=== PATIENT | female | born 1985 | race Caucasian/White ===

== ENCOUNTER 2019-06-20 08:07 | Inpatient (IN) | payer BC ==
[2019-06-20] MEDS ORDERED: METHYLERGONOVINE 0.2 MG INJ IM ×2 (11:00→22:30)
[2019-06-20] MEDS ORDERED: OXYTOCIN 30 UNITS/LR 500 ML IV ×4 (11:00→22:30)
[2019-06-20] MEDS ORDERED: MISOPROSTOL 200 MCG TAB PR ×2 (11:00→22:30)
[2019-06-20] MEDS ORDERED: CARBOPROST 250 MCG INJ IM ×2 (11:00→22:30)
[2019-06-20] MEDS ORDERED: NACL 0.9% 3 ML SYG IV (11:00)
[2019-06-20] MEDS ORDERED: LIDOCAINE 1% (MPF) 30 ML INJ INJ (11:00)
[2019-06-20] MEDS ORDERED: BUTORPHANOL 2 MG INJ IV ×2 (11:00)
[2019-06-20] MEDS ORDERED: IBUPROFEN 600 MG TAB PO (11:00)
[2019-06-20] MEDS: LACTATED RINGER'S 1,000 ML IV ×4 (11:17→20:32)
[2019-06-20 11:56] LABS: ADD MAN DIFF? NO
[2019-06-20 12:08] LABS: ADD UMIC YES; UR ASCORBIC ACID NEGATIVE (NEGATIVE); UR BACTERIA FEW /HPF (NONE SEEN); UR BILIRUBIN (Dip) NEGATIVE (NEGATIVE); UR BLOOD (Dip) 3+ mg/dL (NEGATIVE); UR CLARITY SLIGHTLY CLOUDY (CLEAR); UR COLOR YELLOW (YELLOW); UR GLUCOSE (Dip) NEGATIVE (NEGATIVE); UR KETONES (Dip) NEGATIVE (NEGATIVE); UR LEUKOCYTE ESTERASE (Dip) TRACE Leu/ul (NEGATIVE); UR NITRITE (Dip) NEGATIVE (NEGATIVE); UR RBC > 182 /HPF (0-5); UR SPECIFIC GRAVITY (Dip) 1.011 (1.003-1.030); UR SQUAMOUS EPITHELIAL CELL FEW /HPF (FEW); UR TOTAL PROTEIN (Dip) 1+ mg/dl (NEGATIVE); UR UROBILINOGEN (Dip) NEGATIVE (NEGATIVE); UR WBC 26 /HPF (0-5)
[2019-06-20 12:11] LABS: BASOPHILS % 0.2 % (0.0-2.0); EOSINOPHILS % 0.2 % (0.0-7.0); HEMATOCRIT 38.5 % (37.0-47.0); HEMOGLOBIN 12.8 g/dl (12.0-16.0); LYMPHOCYTES # 1.1 10^3/ul (0.8-2.9); MEAN CORPUSCULAR HEMOGLOBIN 28.4 pg (29.0-33.0); MEAN CORPUSCULAR HGB CONC 33.2 g/dl (32.0-37.0); MEAN CORPUSCULAR VOLUME 85.6 fl (82.0-101.0); MEAN PLATELET VOLUME 10.1 fl (7.4-10.4); MONOCYTE # 0.8 10^3/ul (0.3-0.9); MONOCYTES % 5.2 % (0.0-11.0); NEUTROPHIL # 13.9 10^3/ul (1.6-7.5); NEUTROPHILS % 86.9 % (39.0-77.0); PLATELET COUNT 143 10^3/UL (140-415); RED CELL DISTRIBUTION WIDTH 13.3 % (11.5-14.5)
[2019-06-20 12:23] LABS: ALANINE AMINOTRANSFERASE 27 IU/L (13-69); ALBUMIN 3.3 g/dl (3.3-4.9); ALBUMIN/GLOBULIN RATIO 1.17; ALKALINE PHOSPHATASE 155 IU/L (42-121); ANION GAP 7 (5-13); ASPARTATE AMINO TRANSFERASE 27 IU/L (15-46); BILIRUBIN,INDIRECT 0.4 mg/dl (0-1.1); BILIRUBIN,TOTAL 0.4 mg/dl (0.2-1.3); BLOOD UREA NITROGEN 9 mg/dl (7-20); CALCIUM 8.9 mg/dl (8.4-10.2); CARBON DIOXIDE 23 mmol/L (21-31); CHLORIDE 107 mmol/L (97-110); CREATININE 0.44 mg/dl (0.44-1.00); Estimated GFR > 60 mL/min (>60); GLUCOSE 76 mg/dl (70-220); POTASSIUM 4.6 mmol/L (3.5-5.1); SODIUM 137 mmol/L (135-144); TOTAL PROTEIN 6.1 g/dl (6.1-8.1)
[2019-06-20 12:23] LABS: URIC ACID 4.7 mg/dl (3.1-7.9)
[2019-06-20 12:24] LABS: INR 0.86; PARTIAL THROMBOPLASTIN TIME 24.9 Sec (23.0-35.0); PROTIME 11.8 Sec (11.9-14.9); PT RATIO 0.9
[2019-06-20 12:54] LABS: HEPATITIS B SURFACE ANTIGEN NEGATIVE (NEGATIVE)
[2019-06-20] MEDS ORDERED: ONDANSETRON 4 MG INJ IV (14:30)
[2019-06-20] MEDS ORDERED: FENTAnyl 2MCG/ML-ROPIV 0.2% 100 ML BAG EPI (14:30)
[2019-06-20] MEDS ORDERED: DIPHENHYDRAMINE 50 MG INJ IV (14:30)
[2019-06-20] MEDS ORDERED: NALOXONE (0.4 MG/ML) INJ IV (14:30)
[2019-06-20] MEDS ORDERED: FENTAnyl 2MCG/ML-ROPIV 0.2% 100 ML (14:32)
[2019-06-20 18:12] LABS: RAPID PLASMA REAGIN NONREACTIVE (NR)
[2019-06-20] MEDS: MINERAL OIL LIGHT 10 ML VIAL TOP (21:29)
[2019-06-20] MEDS: OXYTOCIN 30 UNITS/LR 500 ML IV ×2 (22:08→22:30)
[2019-06-20] MEDS: LACTATED RINGER'S 1,000 ML IV* (22:30)
[2019-06-21] MEDS: BENZOCAINE 20% 56 ML SPRAY TOP (01:01)
[2019-06-21] MEDS: IBUPROFEN 600 MG TAB PO ×4 (01:01→17:52)
[2019-06-21] MEDS: LANOLIN HPA 1 PKT TOP (01:01)
[2019-06-21] MEDS: HYDROCODONE/APAP (5/325) TAB PO ×3 (03:16→09:29)
[2019-06-21] MEDS: LACTATED RINGER'S 1,000 ML IV* ×3 (06:30→22:30)
[2019-06-22] MEDS: IBUPROFEN 600 MG TAB PO ×3 (00:10→11:45)
[2019-06-22] MEDS: LACTATED RINGER'S 1,000 ML IV* (06:30)
[2019-06-22 07:15] LABS: ADD MAN DIFF? NO
[2019-06-22 07:24] LABS: WHITE BLOOD COUNT 13.3 10^3/ul (4.8-10.8)
[2019-06-22 07:24] LABS: BASOPHILS % 0.2 % (0.0-2.0); EOSINOPHILS # 0.1 10^3/ul (0.0-0.5); EOSINOPHILS % 0.4 % (0.0-7.0); HEMATOCRIT 35.8 % (37.0-47.0); HEMOGLOBIN 11.4 g/dl (12.0-16.0); LYMPHOCYTES # 1.3 10^3/ul (0.8-2.9); LYMPHOCYTES % 9.8 % (15.0-51.0); MEAN CORPUSCULAR HEMOGLOBIN 28.1 pg (29.0-33.0); MEAN CORPUSCULAR HGB CONC 31.8 g/dl (32.0-37.0); MEAN CORPUSCULAR VOLUME 88.4 fl (82.0-101.0); MEAN PLATELET VOLUME 10.1 fl (7.4-10.4); MONOCYTE # 0.7 10^3/ul (0.3-0.9); NEUTROPHIL # 11.2 10^3/ul (1.6-7.5); NEUTROPHILS % 83.9 % (39.0-77.0); PLATELET COUNT 126 10^3/UL (140-415); RED BLOOD COUNT 4.05 10^6/ul (4.20-5.40); RED CELL DISTRIBUTION WIDTH 13.6 % (11.5-14.5)
[2019-06-22] MEDS: DIPHTH/TET/ACEL PERTUSS (ADULT) 0.5 ML VIAL IM* (11:46)
== END 2019-06-22 15:20 | disposition home or self-care (01) | DRG 807 ==
LOC: OBT 08:07 → L-D 08:08 → OBT 08:20 → L-D 08:20 → PP1 23:26
PROC: 10E0XZZ Delivery of Products of Conception, External Approach (ICD-10-PCS; principal; 2019-06-20)
PROC: 0HQ9XZZ Repair Perineum Skin, External Approach (ICD-10-PCS; 2019-06-20)
PROC: 4A1HXCZ Monitoring of Products of Conception, Cardiac Rate, External Approach (ICD-10-PCS; 2019-06-20)
DX: O70.0 First degree perineal laceration during delivery (principal); Z37.0 Single live birth; O69.1XX0 Labor and delivery complicated by cord around neck, with compression, not applicable or unspecified; Z3A.39 39 weeks gestation of pregnancy
CPT/HCPCS: 62322; 80053; 81001; 84560; 85025; 85384; 85610; 85730; 86592; 86850; 86900; 86901; 87340; 90715; 99464